=== PATIENT | female | born 1975 | race Two or more races ===

== ENCOUNTER 2018-10-16 11:42 | Inpatient (IN) | payer SELFPAY ==
[~2018-10-16] VITALS: Ht 154.9 cm; Wt 79.4 kg
[2018-10-16] MEDS ORDERED: methylPREDNISolone SOD SUCC PF 125 MG/2 ML VIAL. IV ONE (12:30)
[2018-10-16] MEDS ORDERED: diphenhydrAMINE HCL 25 MG CAPSULE PO ONE (12:30)
[2018-10-16] MEDS ORDERED: IV NORMAL SALINE 1000ML BAG 1,000 ML IV ONE ×2 (12:30→16:15)
[2018-10-16] MEDS ORDERED: PROCHLORPERAZINE 10 MG/2 ML VIAL. IV ONE (12:30)
[2018-10-16 13:11] LABS: BASO % 0 % (0-3); EOS % 0 % (0-3); HEMATOCRIT 39.9 % (36.0-47.0); HEMOGLOBIN 13.5 g/dL (12.0-15.5); LYMPH # 0.9 x10^3/uL (1.0-4.8); LYMPH % 10 % (24-48); MEAN CORPUSCULAR HEMOGLOBIN 30 pg (25-35); MEAN CORPUSCULAR HGB CONC 34 g/dL (31-37); MEAN CORPUSCULAR VOLUME 89 fL (79-100); MONO # 0.2 x10^3/uL (0.0-1.1); MONO % 3 % (0-9); NEUT # 7.3 x10^3uL (1.8-7.7); NEUT % 86 % (31-73); PLATELET COUNT 281 x10^3/uL (140-400); RED BLOOD COUNT 4.48 x10^6/uL (3.50-5.40); RED CELL DISTRIBUTION WIDTH 13.2 % (11.5-14.5); WHITE BLOOD COUNT 8.4 x10^3/uL (4.0-11.0)
[2018-10-16 13:18] LABS: BILIRUBIN,URINE NEGATIVE (NEG); CLARITY,URINE CLOUDY; COLOR,URINE YELLOW; NITRITE,URINE NEGATIVE (NEG); PROTEIN,URINE NEGATIVE (NEG-TRACE); UROBILINOGEN,URINE 0.2 mg/dL (0.2 mg/dL)
[2018-10-16 13:19] LABS: CALCIUM 8.9 mg/dL (8.5-10.1); CREATININE 0.7 mg/dL (0.6-1.0); GFR 91.8; POTASSIUM 3.9 mmol/L (3.5-5.1)
[2018-10-16 13:28] LABS: BARBITURATES NEG (NEG); BENZODIAZEPINES NEG (NEG); CANNABINOIDS NEG (NEG); COCAINE NEG (NEG); METHADONE NEG (NEG); OPIATES NEG (NEG); PHENCYCLIDINE NEG (NEG)
[2018-10-16 13:29] LABS: AMPHETAMINE/METHAMPHETAMINE NEG (NEG)
[2018-10-16 13:32] LABS: SQUAMOUS EPITHELIAL CELL,UR MOD /LPF
[2018-10-16 13:33] LABS: AMORPHOUS SEDIMENT,UR PRESENT /HPF; BACTERIA,URINE FEW /HPF (0-FEW); WBC,URINE 0 /HPF (0-4)
--- NOTE | 2018-10-16 13:35 | RAD ---
CT head without contrast dated 10/16/2018. No comparison available. Clinical data indication: Headache for 6 to 7 days. TECHNIQUE: Per contiguous axial imaging the head was performed from skull base to vertex. No contrast administered. One or more of the following individualized dose reduction techniques were utilized for this examination: 1. Automated exposure control 2. Adjustment of the mA and/or kV according to patient size 3. Use of iterative reconstruction technique. FINDINGS: Ventricles and sulci are mildly prominent for age. No midline shift or mass effect. Minimal spotty low density in the deep/subcortical periventricular white matter. No hemorrhage or extra-axial collection. Posterior fossa unremarkable. There is some low density in the central sonya which could be artifactual. Visualized paranasal sinuses and mastoid air cells are clear. No apparent calvarial abnormality. IMPRESSION: 1. No evidence of acute intracranial hemorrhage or mass. 2. There is some vague low density in the central sonya which is most likely artifactual. If there is clinical concern for pontine edema or demyelinating process, MRI may provide additional information. 3. Minimal spotty low density in the deep/subcortical periventricular white matter, nonspecific. Electronically signed by: Freddie Ma MD (10/16/2018 1:32 PM) [id number]
[2018-10-16 14:40] LABS: % BASOS 1 % (0-3); % LYMPHS 11 % (24-48); % MONOS 5 % (0-10); % SEGS 83 % (35-66)
[2018-10-16 14:41] LABS: PLT ESTIMATE ADEQUATE (ADEQUATE)
--- NOTE | 2018-10-16 15:37 | PHYS DOC ---
Past Medical History Past Medical History: No Pertinent History (MEÑO CROOKS APRN) Past Surgical History: (MEÑO CROOKS APRN) Alcohol Use: Occasionally Drug Use: None (MEÑO CROOKS APRN) Adult General Chief Complaint Chief Complaint: HEADACHE HPI HPI Patient is a 43 year old female with no significant medical history who presents to the ED today complaining of 10 out of 10 left-sided headache that has been going on for 6-7 days. Patient describes the headache as throbbing and constant. Patient states she is also experiencing nausea and vomiting intermittently for the last 6-7 days. Patient states she's had headaches before but not as bad as this one. She states she has tried taking Tylenol but the headache is constant despite the Tylenol (MEÑO CROOKS APRN) Review of Systems Review of Systems Constitutional: Denies fever or chills [] Eyes: Denies change in visual acuity, redness, or eye pain [] HENT: Denies nasal congestion or sore throat [] Respiratory: Denies cough or shortness of breath [] Cardiovascular: No additional information not addressed in HPI [] GI: Denies abdominal pain, nausea, vomiting, bloody stools or diarrhea [] : Denies dysuria or hematuria [] Musculoskeletal: Denies back pain or joint pain [] Integument: Denies rash or skin lesions [] Neurologic: Reports left-sided headache, denies focal weakness or sensory changes [] orms were reviewed and found to be within normal limits, except as documented in this note. (MEÑO CROOKS APRN) Current Medications Current Medications Current Medications Medications (Trade) Dose Ordered Sig/Manju Start Time Stop Time Status Last Admin Dose Admin Acetaminophen (Tylenol) 650 mg PRN Q4HRS PRN 10/16/18 16:15 10/17/18 16:14 Diphenhydramine HCl (Benadryl) 25 mg 1X ONCE 10/16/18 12:30 10/16/18 12:43 DC 10/16/18 13:46 25 MG Methylprednisolone Sodium Succinate (SOLU-Medrol 125MG VIAL) 125 mg 1X ONCE 10/16/18 12:30 10/16/18 12:43 DC 10/16/18 13:46 125 MG Morphine Sulfate (Morphine Sulfate) 2 mg PRN Q2HR PRN 10/16/18 16:15 10/17/18 16:14 Ondansetron HCl (Zofran) 4 mg PRN Q8HRS PRN 10/16/18 16:15 10/17/18 16:14 Prochlorperazine Edisylate (Compazine) 10 mg 1X ONCE 10/16/18 12:30 10/16/18 12:43 DC 10/16/18 13:46 10 MG Sodium Chloride 1,000 ml @ 75 mls/hr 1X ONCE 10/16/18 16:15 10/17/18 05:34 10/16/18 16:55 75 MLS/HR (SACHIN LINDSAY MD) Allergies Allergies Allergies Coded Allergies Type Severity Reaction Last Updated Verified No Known Drug Allergies 10/16/18 No (SACHIN LINDSAY MD) Physical Exam Physical Exam Constitutional: Well developed, well nourished, no acute distress, non-toxic appearance. [] HENT: Normocephalic, atraumatic, bilateral external ears normal, oropharynx moist, no oral exudates, nose normal. [] Eyes: PERRLA, EOMI, conjunctiva normal, no discharge. [] Neck: Normal range of motion, no tenderness, supple, no stridor. [] Cardiovascular:Heart rate regular rhythm, no murmur [] Lungs & Thorax: Bilateral breath sounds clear to auscultation [] Abdomen: Bowel sounds normal, soft, no tenderness, no masses, no pulsatile masses. [] Skin: Warm, dry, no erythema, no rash. [] Back: No tenderness, no CVA tenderness. [] Extremities: No tenderness, no cyanosis, no clubbing, ROM intact, no edema. [] Neurologic: Alert and oriented X 3, normal motor function, normal sensory function, no focal deficits noted. Cranial nerves II through XII intact Psychologic: Affect normal, judgement normal, mood normal. [] (MEÑO CROOKS APRN) Current Patient Data Vital Signs Vital Signs Date Time Temp Pulse Resp B/P (MAP) Pulse Ox O2 Delivery O2 Flow Rate FiO2 10/16/18 16:57 68 16 97 10/16/18 12:43 98.7 119/76 (90) Room Air 98.7 (SACHIN LINDSAY MD) Lab Values Laboratory Tests Test 10/16/18 12:50 10/16/18 12:58 10/16/18 13:04 Urine Collection Type Unknown Urine Color Yellow Urine Clarity Cloudy Urine pH 8.0 Urine Specific Dawn 1.015 Urine Protein Negative mg/dL (NEG-TRACE) Urine Glucose (UA) Negative mg/dL (NEG) Urine Ketones (Stick) Negative mg/dL (NEG) Urine Blood Small (NEG) Urine Nitrite Negative (NEG) Urine Bilirubin Negative (NEG) Urine Urobilinogen Dipstick 0.2 mg/dL (0.2 mg/dL) Urine Leukocyte Esterase Negative (NEG) Urine RBC 3-5 /HPF (0-2) Urine WBC 0 /HPF (0-4) Urine Squamous Epithelial Cells Mod /LPF Urine Amorphous Sediment Present /HPF Urine Bacteria Few /HPF (0-FEW) Urine Opiates Screen Neg (NEG) Urine Methadone Screen Neg (NEG) Urine Barbiturates Neg (NEG) Urine Phencyclidine Screen Neg (NEG) Urine Amphetamine/Methamphetamine Neg (NEG) Urine Benzodiazepines Screen Neg (NEG) Urine Cocaine Screen Neg (NEG) Urine Cannabinoids Screen Neg (NEG) Urine Ethyl Alcohol Neg (NEG) White Blood Count 8.4 x10^3/uL (4.0-11.0) Red Blood Count 4.48 x10^6/uL (3.50-5.40) Hemoglobin 13.5 g/dL (12.0-15.5) Hematocrit 39.9 % (36.0-47.0) Mean Corpuscular Volume 89 fL (79-100) Mean Corpuscular Hemoglobin 30 pg (25-35) Mean Corpuscular Hemoglobin Concent 34 g/dL (31-37) Red Cell Distribution Width 13.2 % (11.5-14.5) Platelet Count 281 x10^3/uL (140-400) Neutrophils (%) (Auto) 86 % (31-73) H Lymphocytes (%) (Auto) 10 % (24-48) L Monocytes (%) (Auto) 3 % (0-9) Eosinophils (%) (Auto) 0 % (0-3) Basophils (%) (Auto) 0 % (0-3) Neutrophils # (Auto) 7.3 x10^3uL (1.8-7.7) Lymphocytes # (Auto) 0.9 x10^3/uL (1.0-4.8) L Monocytes # (Auto) 0.2 x10^3/uL (0.0-1.1) Eosinophils # (Auto) 0.0 x10^3/uL (0.0-0.7) Basophils # (Auto) 0.0 x10^3/uL (0.0-0.2) Segmented Neutrophils % 83 % (35-66) H Lymphocytes % 11 % (24-48) L Monocytes % 5 % (0-10) Basophils % 1 % (0-3) Platelet Estimate Adequate (ADEQUATE) Sodium Level 140 mmol/L (136-145) Potassium Level 3.9 mmol/L (3.5-5.1) Chloride Level 102 mmol/L (98-107) Carbon Dioxide Level 27 mmol/L (21-32) Anion Gap 11 (6-14) Blood Urea Nitrogen 8 mg/dL (7-20) Creatinine 0.7 mg/dL (0.6-1.0) Estimated GFR (Cockcroft-Gault) 91.8 Glucose Level 115 mg/dL (70-99) H Calcium Level 8.9 mg/dL (8.5-10.1) Ethyl Alcohol Level < 10 mg/dL (0-10) POC Urine HCG, Qualitative Hcg negative (Negative) Laboratory Tests 10/16/18 12:58 Laboratory Tests 10/16/18 12:58 (SACHIN LINDSAY MD) EKG EKG [] (MEÑO CROOKS APRN) Radiology/Procedures Radiology/Procedures []PROCEDURE: CT HEAD WO CONTRAST CT head without contrast dated 10/16/2018. No comparison available. Clinical data indication: Headache for 6 to 7 days. TECHNIQUE: Per contiguous axial imaging the head was performed from skull base to vertex. No contrast administered. One or more of the following individualized dose reduction techniques were utilized for this examination: 1. Automated exposure control 2. Adjustment of the mA and/or kV according to patient size 3. Use of iterative reconstruction technique. FINDINGS: Ventricles and sulci are mildly prominent for age. No midline shift or mass effect. Minimal spotty low density in the deep/subcortical periventricular white matter. No hemorrhage or extra-axial collection. Posterior fossa unremarkable. There is some low density in the central sonya which could be artifactual. Visualized paranasal sinuses and mastoid air cells are clear. No apparent calvarial abnormality. IMPRESSION: 1. No evidence of acute intracranial hemorrhage or mass. 2. There is some vague low density in the central sonya which is most likely artifactual. If there is clinical concern for pontine edema or demyelinating process, MRI may provide additional information. 3. Minimal spotty low density in the deep/subcortical periventricular white matter, nonspecific. Electronically signed by: Freddie Ma MD (10/16/2018 1:32 PM) [id number] DICTATED and SIGNED BY: FREDDIE MA MD DATE: 10/16/18 1338 (MEÑO CROOKS APRN) Course & Med Decision Making Course & Med Decision Making Pertinent Labs and Imaging studies reviewed. (See chart for details) This is a 43-year-old female patient presenting to the ED today complaining of a left-sided headache for 6-7 days with nausea and vomiting. Labs are negative. Vitals are stable with normal BP at 119/76. Stroke scale is negative. Patient was given Solu-Medrol, Compazine and Benadryl in the ED. She states the headache is slightly better but it still present. CT of the head -No evidence of acute intracranial hemorrhage or mass.There is some vague low density in the central sonya which is most likely artifactual. If there is clinical concern for pontine edema or demyelinating process, MRI may provide additional information. Minimal spotty low density in the deep/subcortical periventricular white matter, nonspecific. Spoke with Dr. Chandra-she requested we do MRI of the Brain with and without contr ast of the brain Spoke with Dr. Arceo who accepted patient for admission. (MEÑO CROOKS APRN) Course & Med Decision Making Patient was seen by TANI, I did not evaluate the patient unless otherwise specified in the chart. (SACHIN LINDSAY MD) Dragon Disclaimer Dragon Disclaimer This electronic medical record was generated, in whole or in part, using a voice recognition dictation system. (MEÑO CROOKS APRN) Departure Departure Impression: Primary Impression: Headache Disposition: ADMITTED INPATIENT Condition: STABLE Referrals: NO PCP (PCP) NIHSS Stroke Scale NIH Stroke Scale: NIH Stroke Scale Response (Comments) Value Level of Consciousness: 0 Alert/Responsive 0 LOC Questions: 0 Answers both correctly 0 Best Gaze: 0 Normal 0 Visual: 0 No visual loss 0 Facial Palsy: 0 Normal, symmetrical 0 Motor - Left Arm 0 No drift 0 Motor - Right Arm 0 No drift 0 Motor - Left Leg 0 No drift 0 Motor: Right Leg 0 No drift 0 Limb Ataxia: 0 Absent 0 Sensory: 0 No loss 0 Best Language: 0 Normal 0 Dysathria: 0 Normal 0 Extinction and Inattention: 0 Normal 0 Total 0 Problem Qualifiers Primary Impression: Headache Headache type: unspecified Headache chronicity pattern: acute headache Intractability: not intractable Qualified Codes: R51 - Headache MEÑO CROOKS APRN October 16, 2018 15:37 SACHIN LINDSAY MD October 16, 2018 18:00
[2018-10-16] MEDS ORDERED: ACETAMINOPHEN 325 MG TABLET. PO PRN (16:15)
[2018-10-16] MEDS ORDERED: MORPHINE SULFATE 2 MG/ML VIAL. IV PRN ×2 (16:15→18:15)
[2018-10-16] MEDS ORDERED: ONDANSETRON PF 4 MG/2 ML VIAL. IV PRN (16:15)
[2018-10-16] MEDS ORDERED: SUMAtriptan SUCCINATE 25 MG TABLET PO PRN (18:00)
[2018-10-16] MEDS ORDERED: BUTALB/APAP/CAFEIN 50/325/40MG TABLET. PO PRN (18:00)
--- NOTE | 2018-10-16 18:05 | PDOC1 ---
History and Physical Date of Admission Date of Admission DATE: 10/16/18 TIME: 18:01 Source Source: Chart review, Patient History of Present Illness History of Present Illness Jeanette is a 43 year old female Hx migrane, but never had a headache like this. pain 10/10 pain for days headache as throbbing and constant. some nausea, poor recent PO itnake, pain not better with home meds PCP is [facility] Past Medical History Cardiovascular: No pertinent hx Pulmonary: No pertinent hx CENTRAL NERVOUS SYSTEM: Migraine ENT: No pertinent hx Renal/: No pertinent hx Family History Family History: No Significant Social History Smoke: No ALCOHOL: none Drugs: None Current Problem List Problem List Problems Medical Problems: (1) Headache Status: Acute Current Medications Current Medications Current Medications Sodium Chloride 1,000 ml @ 1,000 mls/hr 1X ONCE IV Last administered on 10/16/18at 13:44; Start 10/16/18 at 12:30; Stop 10/16/18 at 13:29; Status DC Prochlorperazine Edisylate (Compazine) 10 mg 1X ONCE IV Last administered on 10/16/18at 13:46; Start 10/16/18 at 12:30; Stop 10/16/18 at 12:43; Status DC Methylprednisolone Sodium Succinate (SOLU-Medrol 125MG VIAL) 125 mg 1X ONCE IV Last administered on 10/16/18at 13:46; Start 10/16/18 at 12:30; Stop 10/16/18 at 12:43; Status DC Diphenhydramine HCl (Benadryl) 25 mg 1X ONCE PO Last administered on 10/16/18at 13:46; Start 10/16/18 at 12:30; Stop 10/16/18 at 12:43; Status DC Ondansetron HCl (Zofran) 4 mg PRN Q8HRS PRN IV NAUSEA/VOMITING; Start 10/16/18 at 16:15; Stop 10/17/18 at 16:14 Morphine Sulfate (Morphine Sulfate) 2 mg PRN Q2HR PRN IV PAIN; Start 10/16/18 at 16:15; Stop 10/17/18 at 16:14 Acetaminophen (Tylenol) 650 mg PRN Q4HRS PRN PO FEVER; Start 10/16/18 at 16:15; Stop 10/17/18 at 16:14 Sodium Chloride 1,000 ml @ 75 mls/hr 1X ONCE IV Last administered on 10/16/18at 16:55; Start 10/16/18 at 16:15; Stop 10/17/18 at 05:34 Allergies Allergies: Coded Allergies: No Known Drug Allergies (Unverified , 10/16/18) ROS General: No: Chills, Night Sweats, Fatigue, Malaise, Appetite, Other PSYCHOLOGICAL ROS: No: Anxiety, Behavioral Disorder, Concentration difficultie, Decreased libido, Depression, Disorientation, Hallucinations, Hostility, Irritablity, Memory difficulties, Mood Swings, Obsessive thoughts, Physical abuse, Sexual abuse, Sleep disturbances, Suicidal ideation, Other Eyes: No Blurry vision, No Decreased vision, No Double vision, No Dry eyes, No Excessive tearing, No Eye Pain, No Itchy Eyes, No Loss of vision, No Photophobia, No Scotomata, No Uses contacts, No Uses glasses, No Other HEENT: No: Heacaches, Visual Changes, Hearing change, Nasal congestion, Nasal discharge, Oral lesions, Sinus pain, Sore Throat, Epistaxis, Sneezing, Snoring, Tinnitus, Vertigo, Vocal changes, Other Respiratory: No: Cough, Hemoptysis, Orthopnea, Pleuritic Pain, Shortness of breath, SOB with excertion, Sputum Changes, Stridor, Tachypnea, Wheezing, Other Cardiovascular: No Chest Pain, No Palpitations, No Orthopnea, No Paroxysmal Noc. Dyspnea, No Edema, No Lt Headedness, No Other Gastrointestinal: Yes Nausea Genitourinary: No Dysuria, No Frequency, No Incontinence, No Hematuria, No Retention, No Discharge, No Urgency, No Pain, No Flank Pain, No Other, No , No , No , No , No , No , No Musculoskeletal: No Gait Disturbance, No Joint Pain, No Joint Stiffness, No Joint Swelling, No Muscle Pain, No Muscular Weakness, No Pain In:, No Swelling In:, No Other Neurological: Yes Headaches Skin: No Dry Skin, No Eczema, No Hair Changes, No Lumps, No Mole Changes, No Mottling, No Nail Changes, No Pruritus, No Rash, No Skin Lesion Changes, No Other, No Acne Physical Exam General: Alert, Oriented X3, Cooperative, mild distress HEENT: PERRLA, EOMI, Mucous membr. moist/pink Lungs: Clear to auscultation, Normal air movement Heart: S1S2, no murmurs Extremities: No cyanosis, No edema, Normal pulses Skin: No breakdown, No significant lesion Neuro: Normal gait, Normal tone, Sensation intact, Cranial nerves 3-12 NL Psych/Mental Status: Mood NL Vitals Vitals Vital Signs Date Time Temp Pulse Resp B/P (MAP) Pulse Ox O2 Delivery O2 Flow Rate FiO2 10/16/18 16:57 68 16 97 10/16/18 12:43 98.7 119/76 (90) Room Air 98.7 Labs Labs Laboratory Tests Test 10/16/18 12:50 10/16/18 12:58 10/16/18 13:04 Urine Collection Type Unknown Urine Color Yellow Urine Clarity Cloudy Urine pH 8.0 Urine Specific Custer 1.015 Urine Protein Negative mg/dL (NEG-TRACE) Urine Glucose (UA) Negative mg/dL (NEG) Urine Ketones (Stick) Negative mg/dL (NEG) Urine Blood Small (NEG) Urine Nitrite Negative (NEG) Urine Bilirubin Negative (NEG) Urine Urobilinogen Dipstick 0.2 mg/dL (0.2 mg/dL) Urine Leukocyte Esterase Negative (NEG) Urine RBC 3-5 /HPF (0-2) Urine WBC 0 /HPF (0-4) Urine Squamous Epithelial Cells Mod /LPF Urine Amorphous Sediment Present /HPF Urine Bacteria Few /HPF (0-FEW) Urine Opiates Screen Neg (NEG) Urine Methadone Screen Neg (NEG) Urine Barbiturates Neg (NEG) Urine Phencyclidine Screen Neg (NEG) Urine Amphetamine/Methamphetamine Neg (NEG) Urine Benzodiazepines Screen Neg (NEG) Urine Cocaine Screen Neg (NEG) Urine Cannabinoids Screen Neg (NEG) Urine Ethyl Alcohol Neg (NEG) White Blood Count 8.4 x10^3/uL (4.0-11.0) Red Blood Count 4.48 x10^6/uL (3.50-5.40) Hemoglobin 13.5 g/dL (12.0-15.5) Hematocrit 39.9 % (36.0-47.0) Mean Corpuscular Volume 89 fL (79-100) Mean Corpuscular Hemoglobin 30 pg (25-35) Mean Corpuscular Hemoglobin Concent 34 g/dL (31-37) Red Cell Distribution Width 13.2 % (11.5-14.5) Platelet Count 281 x10^3/uL (140-400) Neutrophils (%) (Auto) 86 % (31-73) Lymphocytes (%) (Auto) 10 % (24-48) Monocytes (%) (Auto) 3 % (0-9) Eosinophils (%) (Auto) 0 % (0-3) Basophils (%) (Auto) 0 % (0-3) Neutrophils # (Auto) 7.3 x10^3uL (1.8-7.7) Lymphocytes # (Auto) 0.9 x10^3/uL (1.0-4.8) Monocytes # (Auto) 0.2 x10^3/uL (0.0-1.1) Eosinophils # (Auto) 0.0 x10^3/uL (0.0-0.7) Basophils # (Auto) 0.0 x10^3/uL (0.0-0.2) Segmented Neutrophils % 83 % (35-66) Lymphocytes % 11 % (24-48) Monocytes % 5 % (0-10) Basophils % 1 % (0-3) Platelet Estimate Adequate (ADEQUATE) Sodium Level 140 mmol/L (136-145) Potassium Level 3.9 mmol/L (3.5-5.1) Chloride Level 102 mmol/L (98-107) Carbon Dioxide Level 27 mmol/L (21-32) Anion Gap 11 (6-14) Blood Urea Nitrogen 8 mg/dL (7-20) Creatinine 0.7 mg/dL (0.6-1.0) Estimated GFR (Cockcroft-Gault) 91.8 Glucose Level 115 mg/dL (70-99) Calcium Level 8.9 mg/dL (8.5-10.1) Ethyl Alcohol Level < 10 mg/dL (0-10) Bedside Urine HCG, Qualitative Hcg negative (Negative) Laboratory Tests Test 10/16/18 12:50 10/16/18 12:58 10/16/18 13:04 Urine Collection Type Unknown Urine Color Yellow Urine Clarity Cloudy Urine pH 8.0 Urine Specific Custer 1.015 Urine Protein Negative mg/dL (NEG-TRACE) Urine Glucose (UA) Negative mg/dL (NEG) Urine Ketones (Stick) Negative mg/dL (NEG) Urine Blood Small (NEG) Urine Nitrite Negative (NEG) Urine Bilirubin Negative (NEG) Urine Urobilinogen Dipstick 0.2 mg/dL (0.2 mg/dL) Urine Leukocyte Esterase Negative (NEG) Urine RBC 3-5 /HPF (0-2) Urine WBC 0 /HPF (0-4) Urine Squamous Epithelial Cells Mod /LPF Urine Amorphous Sediment Present /HPF Urine Bacteria Few /HPF (0-FEW) Urine Opiates Screen Neg (NEG) Urine Methadone Screen Neg (NEG) Urine Barbiturates Neg (NEG) Urine Phencyclidine Screen Neg (NEG) Urine Amphetamine/Methamphetamine Neg (NEG) Urine Benzodiazepines Screen Neg (NEG) Urine Cocaine Screen Neg (NEG) Urine Cannabinoids Screen Neg (NEG) Urine Ethyl Alcohol Neg (NEG) White Blood Count 8.4 x10^3/uL (4.0-11.0) Red Blood Count 4.48 x10^6/uL (3.50-5.40) Hemoglobin 13.5 g/dL (12.0-15.5) Hematocrit 39.9 % (36.0-47.0) Mean Corpuscular Volume 89 fL (79-100) Mean Corpuscular Hemoglobin 30 pg (25-35) Mean Corpuscular Hemoglobin Concent 34 g/dL (31-37) Red Cell Distribution Width 13.2 % (11.5-14.5) Platelet Count 281 x10^3/uL (140-400) Neutrophils (%) (Auto) 86 % (31-73) Lymphocytes (%) (Auto) 10 % (24-48) Monocytes (%) (Auto) 3 % (0-9) Eosinophils (%) (Auto) 0 % (0-3) Basophils (%) (Auto) 0 % (0-3) Neutrophils # (Auto) 7.3 x10^3uL (1.8-7.7) Lymphocytes # (Auto) 0.9 x10^3/uL (1.0-4.8) Monocytes # (Auto) 0.2 x10^3/uL (0.0-1.1) Eosinophils # (Auto) 0.0 x10^3/uL (0.0-0.7) Basophils # (Auto) 0.0 x10^3/uL (0.0-0.2) Segmented Neutrophils % 83 % (35-66) Lymphocytes % 11 % (24-48) Monocytes % 5 % (0-10) Basophils % 1 % (0-3) Platelet Estimate Adequate (ADEQUATE) Sodium Level 140 mmol/L (136-145) Potassium Level 3.9 mmol/L (3.5-5.1) Chloride Level 102 mmol/L (98-107) Carbon Dioxide Level 27 mmol/L (21-32) Anion Gap 11 (6-14) Blood Urea Nitrogen 8 mg/dL (7-20) Creatinine 0.7 mg/dL (0.6-1.0) Estimated GFR (Cockcroft-Gault) 91.8 Glucose Level 115 mg/dL (70-99) Calcium Level 8.9 mg/dL (8.5-10.1) Ethyl Alcohol Level < 10 mg/dL (0-10) Bedside Urine HCG, Qualitative Hcg negative (Negative) Images Images CT head, artifact, non specific changes VTE Prophylaxis Ordered VTE Prophylaxis Devices: Yes VTE Pharmacological Prophylaxi: No Assessment/Plan Assessment/Plan severe headache with aura status migranosis obese, BMI 32 pain control neuro consult ROSS KRAFT MD October 16, 2018 18:05
--- NOTE | 2018-10-16 21:16 | NUR ---
The patient, ONEL LI, 43 y/o, F admitted by ROSS KRAFT MD, was given written information regarding hospital policies, unit procedures and contact persons. Valuables were checked and left with her.
[2018-10-16 21:30] VITALS: BP 119/76
[2018-10-16] MEDS ORDERED: ACET325T9 PO (22:13)
[2018-10-16] MEDS ORDERED: ASPI1TAB31 PO (22:13)
[2018-10-16] MEDS: SUMAtriptan SUCCINATE 100 MG TABLET PO PRN (22:49)
[2018-10-16 23:00] VITALS: BP 121/69
[2018-10-17 03:00] VITALS: BP 114/82
[2018-10-17 04:21] LABS: BASO % 0 % (0-3); EOS % 0 % (0-3); HEMATOCRIT 37.8 % (36.0-47.0); HEMOGLOBIN 12.7 g/dL (12.0-15.5); LYMPH % 11 % (24-48); MEAN CORPUSCULAR HEMOGLOBIN 30 pg (25-35); MEAN CORPUSCULAR HGB CONC 34 g/dL (31-37); MEAN CORPUSCULAR VOLUME 89 fL (79-100); MONO # 0.1 x10^3/uL (0.0-1.1); MONO % 2 % (0-9); NEUT # 8.5 x10^3uL (1.8-7.7); NEUT % 88 % (31-73); PLATELET COUNT 281 x10^3/uL (140-400); RED BLOOD COUNT 4.24 x10^6/uL (3.50-5.40); RED CELL DISTRIBUTION WIDTH 13.5 % (11.5-14.5); WHITE BLOOD COUNT 9.7 x10^3/uL (4.0-11.0)
[2018-10-17 04:34] LABS: CALCIUM 8.6 mg/dL (8.5-10.1); CREATININE 0.6 mg/dL (0.6-1.0); GFR 109.6; POTASSIUM 3.7 mmol/L (3.5-5.1)
[2018-10-17 07:00] VITALS: BP 104/54
--- NOTE | 2018-10-17 08:54 | PDOC ---
PROGRESS NOTES Chief Complaint Chief Complaint severe headache with aura status migranosis obese, BMI 32 pain control neuro consult History of Present Illness History of Present Illness Jeanette, is a 43 year old female Hx migrane, but never had a headache like this. pain 10/10 pain for days headache as throbbing and constant. some nausea, poor recent PO [place], pain not better with home meds Vitals Vitals Vital Signs Date Time Temp Pulse Resp B/P (MAP) Pulse Ox O2 Delivery O2 Flow Rate FiO2 10/17/18 07:00 98.2 69 104/54 (71) 97 Room Air 98.2 10/17/18 07:00 18 Physical Exam General: Alert, Oriented X3, Cooperative, mild distress Extremities: No cyanosis, No edema, Normal pulses Skin: No breakdown, No significant lesion Labs LABS Laboratory Tests Test 10/16/18 12:50 10/16/18 12:58 10/16/18 13:04 10/17/18 03:25 Urine Collection Type Unknown Urine Color Yellow Urine Clarity Cloudy Urine pH 8.0 Urine Specific Phelps 1.015 Urine Protein Negative mg/dL (NEG-TRACE) Urine Glucose (UA) Negative mg/dL (NEG) Urine Ketones (Stick) Negative mg/dL (NEG) Urine Blood Small (NEG) Urine Nitrite Negative (NEG) Urine Bilirubin Negative (NEG) Urine Urobilinogen Dipstick 0.2 mg/dL (0.2 mg/dL) Urine Leukocyte Esterase Negative (NEG) Urine RBC 3-5 /HPF (0-2) Urine WBC 0 /HPF (0-4) Urine Squamous Epithelial Cells Mod /LPF Urine Amorphous Sediment Present /HPF Urine Bacteria Few /HPF (0-FEW) Urine Opiates Screen Neg (NEG) Urine Methadone Screen Neg (NEG) Urine Barbiturates Neg (NEG) Urine Phencyclidine Screen Neg (NEG) Urine Amphetamine/Methamphetamine Neg (NEG) Urine Benzodiazepines Screen Neg (NEG) Urine Cocaine Screen Neg (NEG) Urine Cannabinoids Screen Neg (NEG) Urine Ethyl Alcohol Neg (NEG) White Blood Count 8.4 x10^3/uL (4.0-11.0) 9.7 x10^3/uL (4.0-11.0) Red Blood Count 4.48 x10^6/uL (3.50-5.40) 4.24 x10^6/uL (3.50-5.40) Hemoglobin 13.5 g/dL (12.0-15.5) 12.7 g/dL (12.0-15.5) Hematocrit 39.9 % (36.0-47.0) 37.8 % (36.0-47.0) Mean Corpuscular Volume 89 fL (79-100) 89 fL (79-100) Mean Corpuscular Hemoglobin 30 pg (25-35) 30 pg (25-35) Mean Corpuscular Hemoglobin Concent 34 g/dL (31-37) 34 g/dL (31-37) Red Cell Distribution Width 13.2 % (11.5-14.5) 13.5 % (11.5-14.5) Platelet Count 281 x10^3/uL (140-400) 281 x10^3/uL (140-400) Neutrophils (%) (Auto) 86 % (31-73) 88 % (31-73) Lymphocytes (%) (Auto) 10 % (24-48) 11 % (24-48) Monocytes (%) (Auto) 3 % (0-9) 2 % (0-9) Eosinophils (%) (Auto) 0 % (0-3) 0 % (0-3) Basophils (%) (Auto) 0 % (0-3) 0 % (0-3) Neutrophils # (Auto) 7.3 x10^3uL (1.8-7.7) 8.5 x10^3uL (1.8-7.7) Lymphocytes # (Auto) 0.9 x10^3/uL (1.0-4.8) 1.0 x10^3/uL (1.0-4.8) Monocytes # (Auto) 0.2 x10^3/uL (0.0-1.1) 0.1 x10^3/uL (0.0-1.1) Eosinophils # (Auto) 0.0 x10^3/uL (0.0-0.7) 0.0 x10^3/uL (0.0-0.7) Basophils # (Auto) 0.0 x10^3/uL (0.0-0.2) 0.0 x10^3/uL (0.0-0.2) Segmented Neutrophils % 83 % (35-66) Lymphocytes % 11 % (24-48) Monocytes % 5 % (0-10) Basophils % 1 % (0-3) Platelet Estimate Adequate (ADEQUATE) Sodium Level 140 mmol/L (136-145) 142 mmol/L (136-145) Potassium Level 3.9 mmol/L (3.5-5.1) 3.7 mmol/L (3.5-5.1) Chloride Level 102 mmol/L (98-107) 105 mmol/L (98-107) Carbon Dioxide Level 27 mmol/L (21-32) 23 mmol/L (21-32) Anion Gap 11 (6-14) 14 (6-14) Blood Urea Nitrogen 8 mg/dL (7-20) 9 mg/dL (7-20) Creatinine 0.7 mg/dL (0.6-1.0) 0.6 mg/dL (0.6-1.0) Estimated GFR (Cockcroft-Gault) 91.8 109.6 Glucose Level 115 mg/dL (70-99) 134 mg/dL (70-99) Calcium Level 8.9 mg/dL (8.5-10.1) 8.6 mg/dL (8.5-10.1) Ethyl Alcohol Level < 10 mg/dL (0-10) Bedside Urine HCG, Qualitative Hcg negative (Negative) Assessment and Plan Assessmemt and Plan Problems Medical Problems: (1) Headache Status: Acute Comment Review of Relevant I have reviewed the following items tamy (where applicable) has been applied. Labs Laboratory Tests Test 10/16/18 12:50 10/16/18 12:58 10/16/18 13:04 10/17/18 03:25 Urine Collection Type Unknown Urine Color Yellow Urine Clarity Cloudy Urine pH 8.0 Urine Specific Phelps 1.015 Urine Protein Negative mg/dL (NEG-TRACE) Urine Glucose (UA) Negative mg/dL (NEG) Urine Ketones (Stick) Negative mg/dL (NEG) Urine Blood Small (NEG) Urine Nitrite Negative (NEG) Urine Bilirubin Negative (NEG) Urine Urobilinogen Dipstick 0.2 mg/dL (0.2 mg/dL) Urine Leukocyte Esterase Negative (NEG) Urine RBC 3-5 /HPF (0-2) Urine WBC 0 /HPF (0-4) Urine Squamous Epithelial Cells Mod /LPF Urine Amorphous Sediment Present /HPF Urine Bacteria Few /HPF (0-FEW) Urine Opiates Screen Neg (NEG) Urine Methadone Screen Neg (NEG) Urine Barbiturates Neg (NEG) Urine Phencyclidine Screen Neg (NEG) Urine Amphetamine/Methamphetamine Neg (NEG) Urine Benzodiazepines Screen Neg (NEG) Urine Cocaine Screen Neg (NEG) Urine Cannabinoids Screen Neg (NEG) Urine Ethyl Alcohol Neg (NEG) White Blood Count 8.4 x10^3/uL (4.0-11.0) 9.7 x10^3/uL (4.0-11.0) Red Blood Count 4.48 x10^6/uL (3.50-5.40) 4.24 x10^6/uL (3.50-5.40) Hemoglobin 13.5 g/dL (12.0-15.5) 12.7 g/dL (12.0-15.5) Hematocrit 39.9 % (36.0-47.0) 37.8 % (36.0-47.0) Mean Corpuscular Volume 89 fL (79-100) 89 fL (79-100) Mean Corpuscular Hemoglobin 30 pg (25-35) 30 pg (25-35) Mean Corpuscular Hemoglobin Concent 34 g/dL (31-37) 34 g/dL (31-37) Red Cell Distribution Width 13.2 % (11.5-14.5) 13.5 % (11.5-14.5) Platelet Count 281 x10^3/uL (140-400) 281 x10^3/uL (140-400) Neutrophils (%) (Auto) 86 % (31-73) 88 % (31-73) Lymphocytes (%) (Auto) 10 % (24-48) 11 % (24-48) Monocytes (%) (Auto) 3 % (0-9) 2 % (0-9) Eosinophils (%) (Auto) 0 % (0-3) 0 % (0-3) Basophils (%) (Auto) 0 % (0-3) 0 % (0-3) Neutrophils # (Auto) 7.3 x10^3uL (1.8-7.7) 8.5 x10^3uL (1.8-7.7) Lymphocytes # (Auto) 0.9 x10^3/uL (1.0-4.8) 1.0 x10^3/uL (1.0-4.8) Monocytes # (Auto) 0.2 x10^3/uL (0.0-1.1) 0.1 x10^3/uL (0.0-1.1) Eosinophils # (Auto) 0.0 x10^3/uL (0.0-0.7) 0.0 x10^3/uL (0.0-0.7) Basophils # (Auto) 0.0 x10^3/uL (0.0-0.2) 0.0 x10^3/uL (0.0-0.2) Segmented Neutrophils % 83 % (35-66) Lymphocytes % 11 % (24-48) Monocytes % 5 % (0-10) Basophils % 1 % (0-3) Platelet Estimate Adequate (ADEQUATE) Sodium Level 140 mmol/L (136-145) 142 mmol/L (136-145) Potassium Level 3.9 mmol/L (3.5-5.1) 3.7 mmol/L (3.5-5.1) Chloride Level 102 mmol/L (98-107) 105 mmol/L (98-107) Carbon Dioxide Level 27 mmol/L (21-32) 23 mmol/L (21-32) Anion Gap 11 (6-14) 14 (6-14) Blood Urea Nitrogen 8 mg/dL (7-20) 9 mg/dL (7-20) Creatinine 0.7 mg/dL (0.6-1.0) 0.6 mg/dL (0.6-1.0) Estimated GFR (Cockcroft-Gault) 91.8 109.6 Glucose Level 115 mg/dL (70-99) 134 mg/dL (70-99) Calcium Level 8.9 mg/dL (8.5-10.1) 8.6 mg/dL (8.5-10.1) Ethyl Alcohol Level < 10 mg/dL (0-10) Bedside Urine HCG, Qualitative Hcg negative (Negative) Laboratory Tests Test 10/16/18 12:50 10/16/18 12:58 10/16/18 13:04 10/17/18 03:25 Urine Collection Type Unknown Urine Color Yellow Urine Clarity Cloudy Urine pH 8.0 Urine Specific Phelps 1.015 Urine Protein Negative mg/dL (NEG-TRACE) Urine Glucose (UA) Negative mg/dL (NEG) Urine Ketones (Stick) Negative mg/dL (NEG) Urine Blood Small (NEG) Urine Nitrite Negative (NEG) Urine Bilirubin Negative (NEG) Urine Urobilinogen Dipstick 0.2 mg/dL (0.2 mg/dL) Urine Leukocyte Esterase Negative (NEG) Urine RBC 3-5 /HPF (0-2) Urine WBC 0 /HPF (0-4) Urine Squamous Epithelial Cells Mod /LPF Urine Amorphous Sediment Present /HPF Urine Bacteria Few /HPF (0-FEW) Urine Opiates Screen Neg (NEG) Urine Methadone Screen Neg (NEG) Urine Barbiturates Neg (NEG) Urine Phencyclidine Screen Neg (NEG) Urine Amphetamine/Methamphetamine Neg (NEG) Urine Benzodiazepines Screen Neg (NEG) Urine Cocaine Screen Neg (NEG) Urine Cannabinoids Screen Neg (NEG) Urine Ethyl Alcohol Neg (NEG) White Blood Count 8.4 x10^3/uL (4.0-11.0) 9.7 x10^3/uL (4.0-11.0) Red Blood Count 4.48 x10^6/uL (3.50-5.40) 4.24 x10^6/uL (3.50-5.40) Hemoglobin 13.5 g/dL (12.0-15.5) 12.7 g/dL (12.0-15.5) Hematocrit 39.9 % (36.0-47.0) 37.8 % (36.0-47.0) Mean Corpuscular Volume 89 fL (79-100) 89 fL (79-100) Mean Corpuscular Hemoglobin 30 pg (25-35) 30 pg (25-35) Mean Corpuscular Hemoglobin Concent 34 g/dL (31-37) 34 g/dL (31-37) Red Cell Distribution Width 13.2 % (11.5-14.5) 13.5 % (11.5-14.5) Platelet Count 281 x10^3/uL (140-400) 281 x10^3/uL (140-400) Neutrophils (%) (Auto) 86 % (31-73) 88 % (31-73) Lymphocytes (%) (Auto) 10 % (24-48) 11 % (24-48) Monocytes (%) (Auto) 3 % (0-9) 2 % (0-9) Eosinophils (%) (Auto) 0 % (0-3) 0 % (0-3) Basophils (%) (Auto) 0 % (0-3) 0 % (0-3) Neutrophils # (Auto) 7.3 x10^3uL (1.8-7.7) 8.5 x10^3uL (1.8-7.7) Lymphocytes # (Auto) 0.9 x10^3/uL (1.0-4.8) 1.0 x10^3/uL (1.0-4.8) Monocytes # (Auto) 0.2 x10^3/uL (0.0-1.1) 0.1 x10^3/uL (0.0-1.1) Eosinophils # (Auto) 0.0 x10^3/uL (0.0-0.7) 0.0 x10^3/uL (0.0-0.7) Basophils # (Auto) 0.0 x10^3/uL (0.0-0.2) 0.0 x10^3/uL (0.0-0.2) Segmented Neutrophils % 83 % (35-66) Lymphocytes % 11 % (24-48) Monocytes % 5 % (0-10) Basophils % 1 % (0-3) Platelet Estimate Adequate (ADEQUATE) Sodium Level 140 mmol/L (136-145) 142 mmol/L (136-145) Potassium Level 3.9 mmol/L (3.5-5.1) 3.7 mmol/L (3.5-5.1) Chloride Level 102 mmol/L (98-107) 105 mmol/L (98-107) Carbon Dioxide Level 27 mmol/L (21-32) 23 mmol/L (21-32) Anion Gap 11 (6-14) 14 (6-14) Blood Urea Nitrogen 8 mg/dL (7-20) 9 mg/dL (7-20) Creatinine 0.7 mg/dL (0.6-1.0) 0.6 mg/dL (0.6-1.0) Estimated GFR (Cockcroft-Gault) 91.8 109.6 Glucose Level 115 mg/dL (70-99) 134 mg/dL (70-99) Calcium Level 8.9 mg/dL (8.5-10.1) 8.6 mg/dL (8.5-10.1) Ethyl Alcohol Level < 10 mg/dL (0-10) Bedside Urine HCG, Qualitative Hcg negative (Negative) Medications Current Medications Sodium Chloride 1,000 ml @ 1,000 mls/hr 1X ONCE IV Last administered on 10/16/18at 13:44; Start 10/16/18 at 12:30; Stop 10/16/18 at 13:29; Status DC Prochlorperazine Edisylate (Compazine) 10 mg 1X ONCE IV Last administered on 10/16/18at 13:46; Start 10/16/18 at 12:30; Stop 10/16/18 at 12:43; Status DC Methylprednisolone Sodium Succinate (SOLU-Medrol 125MG VIAL) 125 mg 1X ONCE IV Last administered on 10/16/18at 13:46; Start 10/16/18 at 12:30; Stop 10/16/18 at 12:43; Status DC Diphenhydramine HCl (Benadryl) 25 mg 1X ONCE PO Last administered on 10/16/18at 13:46; Start 10/16/18 at 12:30; Stop 10/16/18 at 12:43; Status DC Ondansetron HCl (Zofran) 4 mg PRN Q8HRS PRN IV NAUSEA/VOMITING; Start 10/16/18 at 16:15; Stop 10/17/18 at 16:14 Morphine Sulfate (Morphine Sulfate) 2 mg PRN Q2HR PRN IV PAIN; Start 10/16/18 at 16:15; Stop 10/16/18 at 18:02; Status DC Acetaminophen (Tylenol) 650 mg PRN Q4HRS PRN PO FEVER; Start 10/16/18 at 16:15; Stop 10/17/18 at 16:14 Sodium Chloride 1,000 ml @ 75 mls/hr 1X ONCE IV Last administered on 10/16/18at 16:55; Start 10/16/18 at 16:15; Stop 10/17/18 at 05:34; Status DC Morphine Sulfate (Morphine Sulfate) 4 mg PRN Q2HR PRN IV PAIN; Start 10/16/18 at 18:15 Sumatriptan Succinate (Imitrex) 100 mg PRN Q12HR PRN PO MIGRAINE; Start 10/16/18 at 18:00; Stop 10/16/18 at 22:45; Status DC Acetaminophen/ Butalbital/ Caffeine (Fioricet) 1 tab PRN Q6HRS PRN PO MIGRAINE HEADACHE; Start 10/16/18 at 18:00 Sumatriptan Succinate (Imitrex) 100 mg PRN Q12HR PRN PO MIGRAINE Last administered on 10/16/18at 22:49; Start 10/16/18 at 22:45 Active Scripts Active Reported Excedrin Migraine Caplet (Aspirin/Acetaminophen/Caffeine) 1 Each Tablet 1 Each PO Q6HRS Tylenol (Acetaminophen) 325 Mg Tablet 500 Mg PO Q4-6HRS PRN Vitals/I & O Vital Sign - Last 24 Hours 10/16/18 10/16/18 10/16/18 10/16/18 12:43 13:12 14:12 15:12 Temp 98.7 98.7 Pulse 81 78 76 88 Resp 16 16 14 16 B/P (MAP) 119/76 (90) Pulse Ox 99 97 98 99 O2 Delivery Room Air 10/16/18 10/16/18 10/16/18 10/16/18 15:42 16:12 16:57 17:27 Pulse 68 68 68 94 Resp 14 18 16 16 Pulse Ox 97 97 97 96 10/16/18 10/16/18 10/16/18 10/16/18 17:57 18:57 19:57 19:57 Pulse 98 80 88 97 Resp 15 15 15 15 Pulse Ox 97 100 97 100 10/16/18 10/16/18 10/16/18 10/16/18 21:08 21:30 21:45 23:00 Temp 98.3 98.2 98.3 98.2 Pulse 89 81 86 Resp 15 18 18 B/P (MAP) 119/76 (90) 121/69 (86) Pulse Ox 97 93 96 O2 Delivery Room Air Room Air Room Air 10/17/18 10/17/18 10/17/18 03:00 07:00 07:00 Temp 98.8 98.2 98.2 98.8 98.2 98.2 Pulse 82 69 69 Resp 18 18 B/P (MAP) 114/82 (93) 104/54 (71) 104/54 (71) Pulse Ox 95 97 97 O2 Delivery Room Air Room Air Room Air Intake and Output 10/16/18 10/16/18 10/17/18 14:59 22:59 06:59 Intake Total 1060 ml 0 ml Balance 1060 ml [address] Head - 1. No evidence of acute intracranial hemorrhage or mass. 2. There is some vague low density in the central sonya which is most likely artifactual. If there is clinical concern for pontine edema or demyelinating process, MRI may provide additional information. 3. Minimal spotty low density in the deep/subcortical periventricular white matter, nonspecific. PEG BOYER MD October 17, 2018 08:54
[2018-10-17] MEDS ORDERED: GADOTERATE 7.5 MMOL/15ML VIAL. IVP ONE (09:30)
--- NOTE | 2018-10-17 10:09 | NUR ---
SW following pt for anticipated dc needs. Chart reviewed and ONEYDA RN. Pt lives at home with family and is self pay. [facility] goes to [facility] for health care needs. No dc recommendations noted at this time.
--- NOTE | 2018-10-17 10:19 | RAD ---
MRI brain with and without contrast dated 10/17/2018. Comparison made to CT head dated 10/16/2018. Clinical data indication: Headache. Abnormal CT. TECHNIQUE: Routine multiplanar multisequence MR imaging of brain performed with and without the administration of 15 cc dotarem. FINDINGS: Ventricles and sulci are within normal limits for age. No midline shift or mass effect. There is minimal increased FLAIR signal within the anterior sonya. Minimal increased FLAIR signal in the deep periventricular white matter. No hemorrhage or extra-axial collection. Posterior fossa unremarkable. No evidence of restricted diffusion abnormality. The major intracranial flow-voids are present. Postcontrast imaging shows no abnormal enhancement or mass. Midline structures are intact. Paranasal sinuses and mastoid air cells are clear. No apparent calvarial abnormality. IMPRESSION: 1. No evidence of acute intracranial hemorrhage, mass or acute infarct. 2. Minimal increased FLAIR signal abnormality in the deep periventricular white matter and anterior sonya, nonspecific. Electronically signed by: Freddie Ma MD (10/17/2018 10:16 AM) [id number]
[2018-10-17 11:00] VITALS: BP 119/73
[2018-10-17] MEDS: SUMAtriptan SUCCINATE 100 MG TABLET PO PRN (13:04)
[2018-10-17] MEDS ORDERED: PROCHLORPERAZINE 10 MG/2 ML VIAL. IV PRN (13:15)
--- NOTE | 2018-10-17 14:19 | PDOC2 ---
NEUROLOGY CONSULT Date of Admission Date of Admission DATE: 10/17/18 TIME: 14:07 Reason for Consult Reason for Consult: IMPRESSION: Headache. Hx of migraine headache. Obesity. No evidence of acute intracranial abnormality nor brain tumor this time. RECOMMENDATIONS/PLAN: Pain control. Topamax 25 mg bid. Weight reduction. HISTORY OF THE PRESENT ILLNESS: This is a 43 -year-old origin female patient with history of chronic headaches for many years. She stated she did not have frequent headaches maybe about 2 3 headaches a year, but she has been having persistent headaches recently and her headaches became worse this time rated 10/10. Her headaches were described as constant throbbing pain especially in her left side of head. She has some nausea, vomiting, and poor recent PO intake. Pain not better with home meds, so she came to [facility] seeking medical attention. PCP is [facility] Past Medical History Cardiovascular: No pertinent hx Pulmonary: No pertinent hx CENTRAL NERVOUS SYSTEM: Migraine ENT: No pertinent hx Renal/: No pertinent hx Family History No Significant Social History Smoke: No ALCOHOL: none Drugs: None PAST SURGERY HISTORY: .. ALLERGY: Unknown MEDICATIONS: Refer to MAR REVIEW OF SYSTEMS: Constitutional: Obesity. Head: No traumatic brain or head injury. Skin: No edema, or rash. Ear: No infection. Eyes: No vision loss or color blindness. Nose: No bleeding or purulent discharges. Hearing: No hearing decrease. Neck: No injury. Breast: No history of cancer, masses,or discharges. Cardiac: No TN, arrhythmia. Pulmonary: No COPD. GI: No GI ulcer, GI bleeding. Urinary/genital: UTI. Endocrinologic: Obesity. Skeletomuscular: No muscular atrophy. Neurological: see HP. Psychiatric: Denies drug use/abuse. Otherwise, not [id number] review of systems. PHYSICAL EXAMINATION: General appearance is in subacute distress. HEENT: Normocephalic and nontraumatic. Eyes, nose, ears, and throat are unremarkable. Neck is supple. No lymphadenopathy. No bruits are heard over the carotid artery. No crepitus. Cardiovascular: S1, S2, regular rate and rhythm. Pulmonary: Clear to auscultation bilaterally. Abdomen: Bowel sounds are positive. Abdomen is soft, nontender, and no ndistended. Extremities: No rash, lesions, or edema. No restriction of range of motion NEUROLOGICAL EXAMINATION: Alert Oriented to time, place and person. PERRL. EOMI. CN: no focal findings. Muscle tone: within normal. Muscle strength: 5 DTR: 2 Plantar reflex: Flexor response bilaterally Gait: not examined in bed. Sensory exam: no abnormal findings. No cerebellar signs elicited. F-T-N test accurate. Current Medications Current Medications Current Medications Sodium Chloride 1,000 ml @ 1,000 mls/hr 1X ONCE IV Last administered on 10/16/18at 13:44; Start 10/16/18 at 12:30; Stop 10/16/18 at 13:29; Status DC Prochlorperazine Edisylate (Compazine) 10 mg 1X ONCE IV Last administered on 10/16/18at 13:46; Start 10/16/18 at 12:30; Stop 10/16/18 at 12:43; Status DC Methylprednisolone Sodium Succinate (SOLU-Medrol 125MG VIAL) 125 mg 1X ONCE IV Last administered on 10/16/18at 13:46; Start 10/16/18 at 12:30; Stop 10/16/18 at 12:43; Status DC Diphenhydramine HCl (Benadryl) 25 mg 1X ONCE PO Last administered on 10/16/18at 13:46; Start 10/16/18 at 12:30; Stop 10/16/18 at 12:43; Status DC Ondansetron HCl (Zofran) 4 mg PRN Q8HRS PRN IV NAUSEA/VOMITING; Start 10/16/18 at 16:15; Stop 10/17/18 at 16:14 Morphine Sulfate (Morphine Sulfate) 2 mg PRN Q2HR PRN IV PAIN; Start 10/16/18 at 16:15; Stop 10/16/18 at 18:02; Status DC Acetaminophen (Tylenol) 650 mg PRN Q4HRS PRN PO FEVER; Start 10/16/18 at 16:15; Stop 10/17/18 at 16:14 Sodium Chloride 1,000 ml @ 75 mls/hr 1X ONCE IV Last administered on 10/16/18at 16:55; Start 10/16/18 at 16:15; Stop 10/17/18 at 05:34; Status DC Morphine Sulfate (Morphine Sulfate) 4 mg PRN Q2HR PRN IV PAIN; Start 10/16/18 at 18:15 Sumatriptan Succinate (Imitrex) 100 mg PRN Q12HR PRN PO MIGRAINE; Start 10/16/18 at 18:00; Stop 10/16/18 at 22:45; Status DC Acetaminophen/ Butalbital/ Caffeine (Fioricet) 1 tab PRN Q6HRS PRN PO MIGRAINE HEADACHE; Start 10/16/18 at 18:00 Sumatriptan Succinate (Imitrex) 100 mg PRN Q12HR PRN PO MIGRAINE Last administered on 10/17/18at 13:04; Start 10/16/18 at 22:45 Gadoterate Meglumine (Dotarem) 15.8 ml 1X ONCE IVP Last administered on 10/17/18at 09:38; Start 10/17/18 at 09:30; Stop 10/17/18 at 09:31; Status DC Prochlorperazine Edisylate (Compazine) 10 mg PRN Q6HRS PRN IV NAUSEA/VOMITING Last administered on 10/17/18at 13:25; Start 10/17/18 at 13:15 Active Scripts Active Reported Excedrin Migraine Caplet (Aspirin/Acetaminophen/Caffeine) 1 Each Tablet 1 Each PO Q6HRS Tylenol (Acetaminophen) 325 Mg Tablet 500 Mg PO Q4-6HRS PRN Allergies Allergies: Allergies Coded Allergies Type Severity Reaction Last Updated Verified No Known Drug Allergies 10/16/18 No ROS Review of System The patient denies any associated fevers, chills, headache, ear pain, rhinorrhea, sore throat, stiff neck, productive cough, chest pain, shortness of breath, back or flank pain, abdominal pain, nausea, vomiting, diarrhea, constipation, dysuria, rash, numbness, weakness, tingling, incontinence, difficulty ambulating, or diaphoresis. Physical Exam Physical Exam General: Well developed, well nourished, no acute distress, well appearing HEENT: Pupils equally round and reactive to light, EOMI, no discharge, normal conjunctiva Neck: Supple, no nuchal rigidity, no JVD, trachea midline, no tenderness Cardiac: RRR, no murmurs, no gallops, no rubs Chest/Lungs: CTAB, no wheeze, no rhonchi, no crackles Abdomen: soft, non-distended, no guarding, no peritoneal signs, non-tender Back: No tenderness Extremities: no edema, pulses intact, non-tender,capillary refill <3 sec bilateral upper and lower extremities, Neuro: Alert and oriented x 4, no focal deficits, normal speech Vitals Vitals: Vital Signs Date Time Temp Pulse Resp B/P (MAP) Pulse Ox O2 Delivery O2 Flow Rate FiO2 10/17/18 11:00 98.8 75 18 119/73 (88) 98 Room Air 98.8 Labs Labs Laboratory Tests Test 10/16/18 12:50 10/16/18 12:58 10/16/18 13:04 10/17/18 03:25 Urine Collection Type Unknown Urine Color Yellow Urine Clarity Cloudy Urine pH 8.0 Urine Specific [place] 1.015 Urine Protein Negative mg/dL (NEG-TRACE) Urine Glucose (UA) Negative mg/dL (NEG) Urine Ketones (Stick) Negative mg/dL (NEG) Urine Blood Small (NEG) Urine Nitrite Negative (NEG) Urine Bilirubin Negative (NEG) Urine Urobilinogen Dipstick 0.2 mg/dL (0.2 mg/dL) Urine Leukocyte Esterase Negative (NEG) Urine RBC 3-5 /HPF (0-2) Urine WBC 0 /HPF (0-4) Urine Squamous Epithelial Cells Mod /LPF Urine Amorphous Sediment Present /HPF Urine Bacteria Few /HPF (0-FEW) Urine Opiates Screen Neg (NEG) Urine Methadone Screen Neg (NEG) Urine Barbiturates Neg (NEG) Urine Phencyclidine Screen Neg (NEG) Urine Amphetamine/Methamphetamine Neg (NEG) Urine Benzodiazepines Screen Neg (NEG) Urine Cocaine Screen Neg (NEG) Urine Cannabinoids Screen Neg (NEG) Urine Ethyl Alcohol Neg (NEG) White Blood Count 8.4 x10^3/uL (4.0-11.0) 9.7 x10^3/uL (4.0-11.0) Red Blood Count 4.48 x10^6/uL (3.50-5.40) 4.24 x10^6/uL (3.50-5.40) Hemoglobin 13.5 g/dL (12.0-15.5) 12.7 g/dL (12.0-15.5) Hematocrit 39.9 % (36.0-47.0) 37.8 % (36.0-47.0) Mean Corpuscular Volume 89 fL (79-100) 89 fL (79-100) Mean Corpuscular Hemoglobin 30 pg (25-35) 30 pg (25-35) Mean Corpuscular Hemoglobin Concent 34 g/dL (31-37) 34 g/dL (31-37) Red Cell Distribution Width 13.2 % (11.5-14.5) 13.5 % (11.5-14.5) Platelet Count 281 x10^3/uL (140-400) 281 x10^3/uL (140-400) Neutrophils (%) (Auto) 86 % (31-73) 88 % (31-73) Lymphocytes (%) (Auto) 10 % (24-48) 11 % (24-48) Monocytes (%) (Auto) 3 % (0-9) 2 % (0-9) Eosinophils (%) (Auto) 0 % (0-3) 0 % (0-3) Basophils (%) (Auto) 0 % (0-3) 0 % (0-3) Neutrophils # (Auto) 7.3 x10^3uL (1.8-7.7) 8.5 x10^3uL (1.8-7.7) Lymphocytes # (Auto) 0.9 x10^3/uL (1.0-4.8) 1.0 x10^3/uL (1.0-4.8) Monocytes # (Auto) 0.2 x10^3/uL (0.0-1.1) 0.1 x10^3/uL (0.0-1.1) Eosinophils # (Auto) 0.0 x10^3/uL (0.0-0.7) 0.0 x10^3/uL (0.0-0.7) Basophils # (Auto) 0.0 x10^3/uL (0.0-0.2) 0.0 x10^3/uL (0.0-0.2) Segmented Neutrophils % 83 % (35-66) Lymphocytes % 11 % (24-48) Monocytes % 5 % (0-10) Basophils % 1 % (0-3) Platelet Estimate Adequate (ADEQUATE) Sodium Level 140 mmol/L (136-145) 142 mmol/L (136-145) Potassium Level 3.9 mmol/L (3.5-5.1) 3.7 mmol/L (3.5-5.1) Chloride Level 102 mmol/L (98-107) 105 mmol/L (98-107) Carbon Dioxide Level 27 mmol/L (21-32) 23 mmol/L (21-32) Anion Gap 11 (6-14) 14 (6-14) Blood Urea Nitrogen 8 mg/dL (7-20) 9 mg/dL (7-20) Creatinine 0.7 mg/dL (0.6-1.0) 0.6 mg/dL (0.6-1.0) Estimated GFR (Cockcroft-Gault) 91.8 109.6 Glucose Level 115 mg/dL (70-99) 134 mg/dL (70-99) Calcium Level 8.9 mg/dL (8.5-10.1) 8.6 mg/dL (8.5-10.1) Ethyl Alcohol Level < 10 mg/dL (0-10) Bedside Urine HCG, Qualitative Hcg negative (Negative) Laboratory Tests Test 10/17/18 03:25 White Blood Count 9.7 x10^3/uL (4.0-11.0) Red Blood Count 4.24 x10^6/uL (3.50-5.40) Hemoglobin 12.7 g/dL (12.0-15.5) Hematocrit 37.8 % (36.0-47.0) Mean Corpuscular Volume 89 fL (79-100) Mean Corpuscular Hemoglobin 30 pg (25-35) Mean Corpuscular Hemoglobin Concent 34 g/dL (31-37) Red Cell Distribution Width 13.5 % (11.5-14.5) Platelet Count 281 x10^3/uL (140-400) Neutrophils (%) (Auto) 88 % (31-73) Lymphocytes (%) (Auto) 11 % (24-48) Monocytes (%) (Auto) 2 % (0-9) Eosinophils (%) (Auto) 0 % (0-3) Basophils (%) (Auto) 0 % (0-3) Neutrophils # (Auto) 8.5 x10^3uL (1.8-7.7) Lymphocytes # (Auto) 1.0 x10^3/uL (1.0-4.8) Monocytes # (Auto) 0.1 x10^3/uL (0.0-1.1) Eosinophils # (Auto) 0.0 x10^3/uL (0.0-0.7) Basophils # (Auto) 0.0 x10^3/uL (0.0-0.2) Sodium Level 142 mmol/L (136-145) Potassium Level 3.7 mmol/L (3.5-5.1) Chloride Level 105 mmol/L (98-107) Carbon Dioxide Level 23 mmol/L (21-32) Anion Gap 14 (6-14) Blood Urea Nitrogen 9 mg/dL (7-20) Creatinine 0.6 mg/dL (0.6-1.0) Estimated GFR (Cockcroft-Gault) 109.6 Glucose Level 134 mg/dL (70-99) Calcium Level 8.6 mg/dL (8.5-10.1) VITA CARVALHO MD October 17, 2018 14:19
[2018-10-17 15:00] VITALS: BP 107/50
[2018-10-17] MEDS ORDERED: SUMA100T3 PO (15:37)
[2018-10-17] MEDS ORDERED: PROC5TAB34 PO (15:37)
[2018-10-17] MEDS ORDERED: TOPI25TA52 PO (15:37)
--- NOTE | 2018-10-17 15:43 | PDOC3 ---
Discharge Summary Visit Information Date of Admission: October 16, 2018 Date of Discharge: October 17, 2018 Admitting Diagnosis: Intractable headache Final Diagnosis Problems Medical Problems: (1) Headache Status: Acute Brief Hospital Course Allergies Allergies Coded Allergies Type Severity Reaction Last Updated Verified No Known Drug Allergies 10/16/18 No Vital Signs Vital Signs Date Time Temp Pulse Resp B/P (MAP) Pulse Ox O2 Delivery O2 Flow Rate FiO2 10/17/18 15:00 98.6 100 18 107/50 (69) 98 Room Air 98.6 Lab Results Laboratory Tests Test 10/16/18 12:50 10/16/18 12:58 10/16/18 13:04 10/17/18 03:25 Urine Collection Type Unknown Urine Color Yellow Urine Clarity Cloudy Urine pH 8.0 Urine Specific [place] 1.015 Urine Protein Negative mg/dL (NEG-TRACE) Urine Glucose (UA) Negative mg/dL (NEG) Urine Ketones (Stick) Negative mg/dL (NEG) Urine Blood Small (NEG) Urine Nitrite Negative (NEG) Urine Bilirubin Negative (NEG) Urine Urobilinogen Dipstick 0.2 mg/dL (0.2 mg/dL) Urine Leukocyte Esterase Negative (NEG) Urine RBC 3-5 /HPF (0-2) Urine WBC 0 /HPF (0-4) Urine Squamous Epithelial Cells Mod /LPF Urine Amorphous Sediment Present /HPF Urine Bacteria Few /HPF (0-FEW) Urine Opiates Screen Neg (NEG) Urine Methadone Screen Neg (NEG) Urine Barbiturates Neg (NEG) Urine Phencyclidine Screen Neg (NEG) Urine Amphetamine/Methamphetamine Neg (NEG) Urine Benzodiazepines Screen Neg (NEG) Urine Cocaine Screen Neg (NEG) Urine Cannabinoids Screen Neg (NEG) Urine Ethyl Alcohol Neg (NEG) White Blood Count 8.4 x10^3/uL (4.0-11.0) 9.7 x10^3/uL (4.0-11.0) Red Blood Count 4.48 x10^6/uL (3.50-5.40) 4.24 x10^6/uL (3.50-5.40) Hemoglobin 13.5 g/dL (12.0-15.5) 12.7 g/dL (12.0-15.5) Hematocrit 39.9 % (36.0-47.0) 37.8 % (36.0-47.0) Mean Corpuscular Volume 89 fL (79-100) 89 fL (79-100) Mean Corpuscular Hemoglobin 30 pg (25-35) 30 pg (25-35) Mean Corpuscular Hemoglobin Concent 34 g/dL (31-37) 34 g/dL (31-37) Red Cell Distribution Width 13.2 % (11.5-14.5) 13.5 % (11.5-14.5) Platelet Count 281 x10^3/uL (140-400) 281 x10^3/uL (140-400) Neutrophils (%) (Auto) 86 % (31-73) 88 % (31-73) Lymphocytes (%) (Auto) 10 % (24-48) 11 % (24-48) Monocytes (%) (Auto) 3 % (0-9) 2 % (0-9) Eosinophils (%) (Auto) 0 % (0-3) 0 % (0-3) Basophils (%) (Auto) 0 % (0-3) 0 % (0-3) Neutrophils # (Auto) 7.3 x10^3uL (1.8-7.7) 8.5 x10^3uL (1.8-7.7) Lymphocytes # (Auto) 0.9 x10^3/uL (1.0-4.8) 1.0 x10^3/uL (1.0-4.8) Monocytes # (Auto) 0.2 x10^3/uL (0.0-1.1) 0.1 x10^3/uL (0.0-1.1) Eosinophils # (Auto) 0.0 x10^3/uL (0.0-0.7) 0.0 x10^3/uL (0.0-0.7) Basophils # (Auto) 0.0 x10^3/uL (0.0-0.2) 0.0 x10^3/uL (0.0-0.2) Segmented Neutrophils % 83 % (35-66) Lymphocytes % 11 % (24-48) Monocytes % 5 % (0-10) Basophils % 1 % (0-3) Platelet Estimate Adequate (ADEQUATE) Sodium Level 140 mmol/L (136-145) 142 mmol/L (136-145) Potassium Level 3.9 mmol/L (3.5-5.1) 3.7 mmol/L (3.5-5.1) Chloride Level 102 mmol/L (98-107) 105 mmol/L (98-107) Carbon Dioxide Level 27 mmol/L (21-32) 23 mmol/L (21-32) Anion Gap 11 (6-14) 14 (6-14) Blood Urea Nitrogen 8 mg/dL (7-20) 9 mg/dL (7-20) Creatinine 0.7 mg/dL (0.6-1.0) 0.6 mg/dL (0.6-1.0) Estimated GFR (Cockcroft-Gault) 91.8 109.6 Glucose Level 115 mg/dL (70-99) 134 mg/dL (70-99) Calcium Level 8.9 mg/dL (8.5-10.1) 8.6 mg/dL (8.5-10.1) Ethyl Alcohol Level < 10 mg/dL (0-10) Bedside Urine HCG, Qualitative Hcg negative (Negative) Laboratory Tests Test 10/17/18 03:25 White Blood Count 9.7 x10^3/uL (4.0-11.0) Red Blood Count 4.24 x10^6/uL (3.50-5.40) Hemoglobin 12.7 g/dL (12.0-15.5) Hematocrit 37.8 % (36.0-47.0) Mean Corpuscular Volume 89 fL (79-100) Mean Corpuscular Hemoglobin 30 pg (25-35) Mean Corpuscular Hemoglobin Concent 34 g/dL (31-37) Red Cell Distribution Width 13.5 % (11.5-14.5) Platelet Count 281 x10^3/uL (140-400) Neutrophils (%) (Auto) 88 % (31-73) Lymphocytes (%) (Auto) 11 % (24-48) Monocytes (%) (Auto) 2 % (0-9) Eosinophils (%) (Auto) 0 % (0-3) Basophils (%) (Auto) 0 % (0-3) Neutrophils # (Auto) 8.5 x10^3uL (1.8-7.7) Lymphocytes # (Auto) 1.0 x10^3/uL (1.0-4.8) Monocytes # (Auto) 0.1 x10^3/uL (0.0-1.1) Eosinophils # (Auto) 0.0 x10^3/uL (0.0-0.7) Basophils # (Auto) 0.0 x10^3/uL (0.0-0.2) Sodium Level 142 mmol/L (136-145) Potassium Level 3.7 mmol/L (3.5-5.1) Chloride Level 105 mmol/L (98-107) Carbon Dioxide Level 23 mmol/L (21-32) Anion Gap 14 (6-14) Blood Urea Nitrogen 9 mg/dL (7-20) Creatinine 0.6 mg/dL (0.6-1.0) Estimated GFR (Cockcroft-Gault) 109.6 Glucose Level 134 mg/dL (70-99) Calcium Level 8.6 mg/dL (8.5-10.1) Brief Hospital Course Ms. Burch is a 43 yo F w/ PMHX headaches presented with intractable migraine that improved with IV imitrex, compazine, and switched to oral with good effect. Has f/u at [facility] Greater than 30 minutes spent on discharge. Discharge Information Condition at Discharge: Improved Follow Up: Weeks (2) Disposition/Orders: D/C to Home Scheduled Aspirin/Acetaminophen/Caffeine (Excedrin Migraine Caplet) 1 Each Tablet, 1 EACH PO Q6HRS for headache, (Reported) Entered as Reported by: SYLVIA RAHMAN on 10/16/182212 Last Action: New Order on 10/16/182212 by SYLVIA HER Topiramate (Topamax) 25 Mg Tablet, 25 MG PO BID for Migraine headache for 30 Days, #60 Ref 2 Prescribed by: PEG BOYER MD on 10/17/181536 Scheduled PRN Acetaminophen (Tylenol) 325 Mg Tablet, 500 MG PO Q4-6HRS PRN for HEADACHE, (Reported) Entered as Reported by: SYLVIA RAHMAN on 10/16/182212 Last Action: New Order on 10/16/182212 by SYLVIA HER Prochlorperazine Maleate (Compazine) 5 Mg Tablet, 5 MG PO PRN PRN for HEADACHE for 30 Days, #10 Prescribed by: PEG BOYER MD on 10/17/18 1537 Sumatriptan Succinate (Imitrex) 100 Mg Tablet, 100 MG PO PRN Q12HR PRN for MIGRAINE for 30 Days, #9 Prescribed by: PEG BOYER MD on 10/17/18 1537 PEG BOYER MD October 17, 2018 15:43
--- NOTE | 2018-10-17 17:33 | NUR ---
Discharge Note: ONEL LI [address] Discharge instructions and discharge home medications reviewed with Patient and a copy given. All questions have been answered and understanding verbalized. The following instructions and handouts were given: prochloperazine, sumatriptan, and topiramate education, general headache information. Discontinued lines and drains: peripheral IV, tip intact. Patient discharged to home with self care via private vehicle. Pt walked off unit in stable condition with all personal belongings.
[2018-10-17] MEDS ORDERED: TOPIRAMATE 25 MG TABLET. PO SCH (21:00)
== END 2018-10-17 16:47 | disposition home or self-care (01) | DRG 103 ==
LOC: ER 11:42 → 5 NORTH 15:32
PROVIDERS: ADMIT Internal Medicine; ATTEND Internal Medicine
DX: G43.111 Migraine with aura, intractable, with status migrainosus (principal); E66.9 Obesity, unspecified; Z68.32 Body mass index [BMI] 32.0-32.9, adult; Z79.899 Other long term (current) drug therapy; Z98.891 History of uterine scar from previous surgery
CPT/HCPCS: 36415; 70450; 70553; 80048; 80307; 81001; 81025; 85007; 85025; 96361; 96374; 96375; A9575; G0480; J0780; J2930; J7030; Q0163; 99285-25